=== PATIENT | female | born 1945 | race Hispanic/Latino ===

== ENCOUNTER → 2021-09-20 | Outpatient (CLI) | payer MEDICARE ==
[~2021-09-20] MED LIST: PRAV10TA39 PO
[2021-09-20 08:36] LABS: INR 0.98 (0.85-1.15); PROTHROMBIN TIME 10.7 SEC (9.6-11.6)
== END | disposition home or self-care (01) ==
LOC: RAH 07:33
PROVIDERS: ATTEND Family Medicine
DX: N63.41 Unspecified lump in right breast, subareolar (principal); N60.31 Fibrosclerosis of right breast; N64.1 Fat necrosis of breast; Z79.01 Long term (current) use of anticoagulants
CPT/HCPCS: 19083; 36415; 85610; 85730; A4215 ×3; 76942

== ENCOUNTER 2021-09-29 05:52 | Day surgery (SDC) | payer MEDICARE ==
[2021-09-27 08:14] VITALS: BP 108/53
[2021-09-27 13:42] LABS: BASOPHILS % (AUTO) 0.6 % (0.0-5.0); EOSINOPHILS % (AUTO) 1.9 % (0.0-8.0); HEMATOCRIT 37.2 % (36-48); LYMPHOCYTES % (AUTO) 15.5 % (21.0-51.0); MEAN CORPUSCULAR HEMOGLOBIN 29.2 pg (27.0-33.0); MEAN CORPUSCULAR HGB CONC 32.3 g/dL (32.0-36.0); MEAN CORPUSCULAR VOLUME 90.5 fL (79-99); MONOCYTES % (AUTO) 6.3 % (3.0-13.0); NEUTROPHILS % (AUTO) 75.5 % (40.0-77.0); PLATELET COUNT (AUTO) 212 K/uL (130-400); RED BLOOD CELL COUNT(AUTO) 4.11 MIL/uL (4.00-5.50); RED CELL DISTRIBUTION WIDTH 12.7 % (11.0-15.5); WHITE BLOOD COUNT (AUTO) 4.6 K/uL (4.8-10.8)
[2021-09-27 13:44] LABS: APPEARANCE,URINE Clear (CLEAR); BILIRUBIN,URINE Negative (NEGATIVE); COLOR,URINE Yellow (YELLOW); GLUCOSE, URINE (UA) Negative (NEGATIVE); KETONES,URINE Negative (NEGATIVE); LEUKOCYTE ESTERASE ,URINE Trace (NEGATIVE); NITRATE,URINE Negative (NEGATIVE); OCCULT BLOOD,URINE Small (NEGATIVE); PH,URINE 6.5 (5.0-8.0); PROTEIN,URINE Negative (NEGATIVE)
[2021-09-27 13:48] LABS: BACTERIA,URINE Rare /HPF (None Seen); SQUAMOUS EPITHELIAL CELL,UR Rare /HPF (0-2); WBC,URINE 0-1 /HPF (0-1)
[2021-09-27 13:49] LABS: CREATININE 0.7 mg/dL (0.5-1.5); POTASSIUM 3.9 mmol/L (3.5-5.1)
[2021-09-27 13:51] LABS: INR 0.97 (0.85-1.15); PROTHROMBIN TIME 10.6 SEC (9.6-11.6)
[2021-09-27 13:52] LABS: PARTIAL THROMBOPLASTIN TIME 27.5 SEC (26.3-35.5)
[2021-09-29] VITALS (9 sets, daily range): BP systolic 90–97; BP diastolic 39–58
[~2021-09-29] VITALS: Ht 162.6 cm; Wt 61.8 kg
[2021-09-29] MEDS ORDERED: 0.9%NACL 1000ML 1,000 ML IV ONE (06:23)
[2021-09-29] MEDS ORDERED: IOHEXOL 350 MG/ML 100ML INFUS..BTL IV ONE (07:08)
[2021-09-29] MEDS ORDERED: IOHEXOL-350 50ML VIAL IV ONE (07:08)
[2021-09-29] MEDS ORDERED: MIDAZOLAM HCL 1 MG/ML 2ML VIAL ONE (07:09)
[2021-09-29] MEDS ORDERED: LIDOCAINE HCL 400MG/20ML VIAL ONE (07:09)
[2021-09-29] MEDS ORDERED: FENTANYL CITRATE PF 50 MCG/1 ML 2ML VIAL ONE (07:09)
[2021-09-29] MEDS ORDERED: NITROGLYCERIN 50MG VIAL ONE (07:14)
[2021-09-29] MEDS ORDERED: IOHEXOL-350 75 ML VIAL IV ONE (07:51)
[2021-09-29] MEDS ORDERED: 0.9%NACL 1000ML 1,000 ML IV SCH (08:30)
== END 2021-09-29 12:45 | disposition home or self-care (01) ==
LOC: DAH 05:52
PROVIDERS: ATTEND Internal Medicine
DX: I25.10 Atherosclerotic heart disease of native coronary artery without angina pectoris (principal); I42.8 Other cardiomyopathies; M81.0 Age-related osteoporosis without current pathological fracture; E78.5 Hyperlipidemia, unspecified; F17.200 Nicotine dependence, unspecified, uncomplicated; Z92.21 Personal history of antineoplastic chemotherapy; Z85.72 Personal history of non-Hodgkin lymphomas; Z90.710 Acquired absence of both cervix and uterus; Z82.49 Family history of ischemic heart disease and other diseases of the circulatory system; Z83.3 Family history of diabetes mellitus; Z82.3 Family history of stroke; Z79.01 Long term (current) use of anticoagulants; Z79.899 Other long term (current) drug therapy; Z98.890 Other specified postprocedural states
CPT/HCPCS: 36415; 71045; 80048; 81001; 85025; 85610; 85730; 93005; 93458; 93567; A4215; A4216; A4221; A4222; A4223 ×3; A4606; A4663; C1760; C1894 ×2; J1644; J2250; J3010; J3490; J7030; Q9965; Q9967 ×3; 96365; 96366; 99156; 99157

== ENCOUNTER 2022-03-03 07:51 | Day surgery (SDC) | payer MEDICARE ==
[2022-03-01 11:58] LABS: BASOPHILS % (AUTO) 0.8 % (0.0-5.0); EOSINOPHILS % (AUTO) 3.9 % (0.0-8.0); HEMATOCRIT 35.9 % (36-48); MEAN CORPUSCULAR HEMOGLOBIN 28.9 pg (27.0-33.0); MEAN CORPUSCULAR HGB CONC 32.6 g/dL (32.0-36.0); MEAN CORPUSCULAR VOLUME 88.6 fL (79-99); MONOCYTES % (AUTO) 7.8 % (3.0-13.0); NEUTROPHILS % (AUTO) 77.1 % (40.0-77.0); PLATELET COUNT (AUTO) 226 K/uL (130-400); RED BLOOD CELL COUNT(AUTO) 4.05 MIL/uL (4.00-5.50); RED CELL DISTRIBUTION WIDTH 12.9 % (11.0-15.5); WHITE BLOOD COUNT (AUTO) 4.9 K/uL (4.8-10.8)
[2022-03-01 12:04] LABS: CREATININE 0.8 mg/dL (0.5-1.5); POTASSIUM 3.7 mmol/L (3.5-5.1)
[2022-03-01 12:08] LABS: INR 0.95 (0.85-1.15); PROTHROMBIN TIME 10.4 SEC (9.6-11.6)
[2022-03-01 12:09] LABS: PARTIAL THROMBOPLASTIN TIME 26.6 SEC (26.3-35.5)
[2022-03-02 10:39] VITALS: BP 94/53
[2022-03-03] VITALS (9 sets, daily range): BP systolic 81–103; BP diastolic 45–57
[~2022-03-03] VITALS: Ht 162.6 cm; Wt 62.4 kg
[~2022-03-03 07:51] MED LIST changes: +LORA-997 PO
[2022-03-03] MEDS ORDERED: 0.9%NACL 1000ML 1,000 ML IV SCH (08:00)
[2022-03-03] MEDS ORDERED: CEFAZOLIN SODIUM 1 GM VIAL IVP ONE (08:00)
[2022-03-03] MEDS ORDERED: BUPIVACAINE/PF 0.25% 30ML VIAL IJ ONE (10:21)
[2022-03-03] MEDS ORDERED: LIDOCAINE HCL 1% 20 ML VIAL ONE (10:21)
[2022-03-03] MEDS ORDERED: MIDAZOLAM HCL 1 MG/ML 2ML VIAL ONE (10:22)
[2022-03-03] MEDS ORDERED: MEPERIDINE-PF 25 MG/ML SYG ONE (10:22)
[2022-03-03] MEDS ORDERED: ACETAMINOPHEN WITH CODEINE 1 TAB TAB PO PRN (11:30)
[2022-03-03] MEDS ORDERED: TRAM50TA4 PO (11:34)
== END 2022-03-03 15:30 | disposition home or self-care (01) ==
LOC: DAH 07:51
PROVIDERS: ATTEND Internal Medicine Cardiovascular Disease
DX: I42.8 Other cardiomyopathies (principal); I11.0 Hypertensive heart disease with heart failure; I50.43 Acute on chronic combined systolic (congestive) and diastolic (congestive) heart failure; F17.210 Nicotine dependence, cigarettes, uncomplicated; I25.10 Atherosclerotic heart disease of native coronary artery without angina pectoris; Z82.49 Family history of ischemic heart disease and other diseases of the circulatory system; Z83.3 Family history of diabetes mellitus; Z82.3 Family history of stroke; Z79.899 Other long term (current) drug therapy; Z79.01 Long term (current) use of anticoagulants
CPT/HCPCS: 80048; 85025; 85610; 85730; 36415; 33249; 71045; 93005; A6260; C1722; C1895; J0690 ×2; J7030; J3490; J2250; J2175; A4215; A4222; A4221; A4663; A4216; A4606; A4223 ×3; 99156; 99157

== ENCOUNTER 2022-07-11 12:35 | Inpatient (IN) | payer MEDICARE ==
[~2022-07-11] VITALS: Ht 162.6 cm; Wt 60.8 kg
[~2022-07-11 12:35] MED LIST changes: +TRAM50TA4 PO
[2022-07-11 13:07] LABS: HEMATOCRIT 37.2 % (36-48); MEAN CORPUSCULAR HEMOGLOBIN 28.1 pg (27.0-33.0); MEAN CORPUSCULAR VOLUME 87.7 fL (79-99); RED BLOOD CELL COUNT(AUTO) 4.24 MIL/uL (4.00-5.50); RED CELL DISTRIBUTION WIDTH 16.5 % (11.0-15.5); WHITE BLOOD COUNT (AUTO) 9.8 K/uL (4.8-10.8)
[2022-07-11 13:17] LABS: CARBON DIOXIDE 27 mmol/L (21-32); CHLORIDE 100 mmol/L (101-111); CREATININE 0.9 mg/dL (0.5-1.5); GLOMERULAR FILTR. RATE CALC 65 mL/min (>60); GLUCOSE,RANDOM 252 mg/dL (70-105); POTASSIUM 3.6 mmol/L (3.5-5.1); SODIUM SERUM 137 mmol/L (136-145); UREA NITROGEN, BLOOD 29 mg/dL (7-18)
[2022-07-11 13:21] LABS: ALANINE AMINOTRANSFERASE 17 U/L (12-78); ALBUMIN 2.7 g/dL (3.5-5.0); ASPARTATE AMINOTRANSFERASE 16 U/L (10-37)
[2022-07-11 13:22] LABS: LIPASE < 50 U/L (114-286)
[2022-07-11 13:37] LABS: APPEARANCE,URINE CLEAR (CLEAR); BILIRUBIN,URINE NEGATIVE (NEGATIVE); COLOR,URINE YELLOW (YELLOW); GLUCOSE, URINE (UA) 30 mg/dL (NEGATIVE); KETONES,URINE 5 mg/dL (NEGATIVE); LEUKOCYTE ESTERASE ,URINE 500 Leu/uL (NEGATIVE); NITRATE,URINE NEGATIVE (NEGATIVE); OCCULT BLOOD,URINE NEGATIVE (NEGATIVE); PH,URINE 6.5 (5.0-8.0); PROTEIN,URINE 70 mg/dL (NEGATIVE)
[2022-07-11] MEDS ORDERED: CEFTRIAXONE 1G VIAL IVP STA (13:55)
[2022-07-11] MEDS ORDERED: AZITHROMYCIN 500MG+NS 250ML IVPB STA (14:10)
[2022-07-11 14:11] LABS: BACTERIA,URINE FEW /HPF (None Seen); MUCUS,URINE RARE LPF (None Seen); SQUAMOUS EPITHELIAL CELL,UR FEW /HPF (0-2)
[2022-07-11] MEDS ORDERED: KETOROLAC 30MG VIAL (30MG/ML) ONE (14:56)
[2022-07-11] MEDS ORDERED: KETOROLAC 30MG VIAL (30MG/ML) IVP ONE (15:00)
[2022-07-11] MEDS ORDERED: FUROSEMIDE 40MG VIAL IV STA (15:06)
[2022-07-11] MEDS ORDERED: ONDANSETRON 4MG INJ IVP PRN (15:30)
[2022-07-11] MEDS ORDERED: HYDRALAZINE 20MG/ML VIAL IV PRN (15:30)
[2022-07-11] MEDS ORDERED: LACTULOSE 20 GM/30 ML UDCUP PO PRN (15:30)
[2022-07-11] MEDS ORDERED: LABETALOL 20MG SYG IV PRN (15:30)
[2022-07-11] MEDS: FUROSEMIDE 20MG VIAL IV SCH (15:31)
[2022-07-11] MEDS ORDERED: SODIUM CHLORIDE 3% FOR INHALATION 4 ML/AMP VIAL.NEB IH ONE ×2 (15:37→18:17)
[2022-07-11 16:29] VITALS: BP 105/55
[2022-07-11] MEDS: INSULIN HUMULIN R 100 UNIT/ML 3ML SQ SCH ×2 (16:30→21:00)
[2022-07-11] MEDS: IPRATROPIUM/ALBUTEROL SULFATE 3 ML SOLUTION IH SCH ×2 (18:42→22:40)
[2022-07-11] MEDS ORDERED: FURO20TA4 PO (20:36)
[2022-07-11] MEDS ORDERED: IVAB5TAB PO (20:36)
[2022-07-11] MEDS: FAMOTIDINE 20MG TAB PO SCH (21:32)
[2022-07-11] MEDS: CEFEPIME HCL 1 GM VIAL IVP SCH (21:32)
[2022-07-12] VITALS: BP 104/68
[2022-07-12] MEDS ORDERED: MORPHINE 2 MG SYG IVP ONE (01:00)
[2022-07-12] MEDS: LIDOCAINE 5% TOPICAL PATCH TP SCH ×2 (01:35→08:51)
[2022-07-12 02:23] LABS: BASOPHILS % (AUTO) 0.2 % (0.0-5.0); EOSINOPHILS % (AUTO) 0.4 % (0.0-8.0); HEMATOCRIT 34.6 % (36-48); LYMPHOCYTES % (AUTO) 7.9 % (21.0-51.0); MEAN CORPUSCULAR HEMOGLOBIN 27.8 pg (27.0-33.0); MEAN CORPUSCULAR HGB CONC 32.4 g/dL (32.0-36.0); MEAN CORPUSCULAR VOLUME 85.9 fL (79-99); MONOCYTES % (AUTO) 8.2 % (3.0-13.0); NEUTROPHILS % (AUTO) 83.1 % (40.0-77.0); PLATELET COUNT (AUTO) 152 K/uL (130-400); RED BLOOD CELL COUNT(AUTO) 4.03 MIL/uL (4.00-5.50); RED CELL DISTRIBUTION WIDTH 16.3 % (11.0-15.5); WHITE BLOOD COUNT (AUTO) 8.5 K/uL (4.8-10.8)
[2022-07-12] MEDS: IPRATROPIUM/ALBUTEROL SULFATE 3 ML SOLUTION IH SCH ×5 (02:28→20:05)
[2022-07-12] MEDS ORDERED: LORATADINE 10 MG TABLET PO PRN (02:30)
[2022-07-12] MEDS ORDERED: POTASSIUM CHLORIDE 10MEQ/100ML 100 ML IV PRN (02:30)
[2022-07-12] MEDS ORDERED: POTASSIUM CHLORIDE 20MEQ/100ML 100 ML IV PRN (02:30)
[2022-07-12] MEDS ORDERED: KCL 20 MEQ ERTAB PO PRN (02:30)
[2022-07-12] MEDS ORDERED: LIDOCAINE HCL-MPF 1% 2ML VIAL IV PRN ×2 (02:30)
[2022-07-12] MEDS ORDERED: MAGNESIUM 2GM PREMIX 50ML 50 ML IV PRN ×2 (02:30)
[2022-07-12] MEDS ORDERED: POTASSIUM CHLORIDE 10% ELIXIR 20 MEQ/15 ML UDCUP PO PRN ×2 (02:30)
[2022-07-12 02:42] LABS: CREATININE 0.9 mg/dL (0.5-1.5); MAGNESIUM 1.5 mg/dL (1.80-2.40); PHOSPHORUS 3.3 mg/dL (2.5-4.9); POTASSIUM 3.4 mmol/L (3.5-5.1)
[2022-07-12 02:46] LABS: HEMOGLOBIN A1C 7.5 % (4.0-6.0)
[2022-07-12] MEDS: FUROSEMIDE 20MG VIAL IV SCH ×2 (02:55→15:20)
[2022-07-12] MEDS: KCL 20 MEQ ERTAB PO PRN ×2 (02:56→05:12)
[2022-07-12 03:11] LABS: B-TYPE NATRIURETIC PEPTIDE 1470 pg/mL (0-100)
[2022-07-12 04:00] VITALS: BP 158/87
[2022-07-12] MEDS: INSULIN HUMULIN R 100 UNIT/ML 3ML SQ SCH ×5 (07:23→20:47)
[2022-07-12 07:30] VITALS: BP 96/60
[2022-07-12] MEDS: IVABRADINE HCL 5 MG TABLET PO SCH ×5 (08:00→16:24)
[2022-07-12] MEDS: FAMOTIDINE 20MG TAB PO SCH ×2 (08:50→20:48)
[2022-07-12] MEDS: ENOXAPARIN SODIUM 30 MG/0.3 ML SQ SCH (08:51)
[2022-07-12] MEDS: CEFEPIME HCL 1 GM VIAL IVP SCH ×2 (08:51→20:49)
[2022-07-12 11:00] VITALS: BP 96/55
[2022-07-12] MEDS: AZITHROMYCIN 500MG+NS 250ML IVPB SCH (13:32)
[2022-07-12 16:00] VITALS: BP 100/68
[2022-07-12 19:00] VITALS: BP 118/67
[2022-07-12] MEDS: ATORVASTATIN 10 MG TABLET PO SCH (20:48)
[2022-07-12] MEDS: TRAMADOL HCL 50 MG TABLET PO PRN (20:50)
[2022-07-13] VITALS (7 sets, daily range): BP systolic 74–121; BP diastolic 38–67
[2022-07-13] MEDS: IPRATROPIUM/ALBUTEROL SULFATE 3 ML SOLUTION IH SCH ×7 (00:25→22:54)
[2022-07-13] MEDS: FUROSEMIDE 20MG VIAL IV SCH ×2 (04:20→18:27)
[2022-07-13 05:19] LABS: BASOPHILS % (AUTO) 0.2 % (0.0-5.0); EOSINOPHILS % (AUTO) 0.3 % (0.0-8.0); HEMATOCRIT 37.2 % (36-48); LYMPHOCYTES % (AUTO) 8.9 % (21.0-51.0); MEAN CORPUSCULAR HEMOGLOBIN 28.2 pg (27.0-33.0); MEAN CORPUSCULAR HGB CONC 33.3 g/dL (32.0-36.0); MEAN CORPUSCULAR VOLUME 84.5 fL (79-99); MONOCYTES % (AUTO) 8.6 % (3.0-13.0); NEUTROPHILS % (AUTO) 81.7 % (40.0-77.0); PLATELET COUNT (AUTO) 199 K/uL (130-400); RED CELL DISTRIBUTION WIDTH 16.3 % (11.0-15.5); WHITE BLOOD COUNT (AUTO) 9.2 K/uL (4.8-10.8)
[2022-07-13 05:22] LABS: MAGNESIUM 1.9 mg/dL (1.80-2.40); POTASSIUM 3.8 mmol/L (3.5-5.1)
[2022-07-13] MEDS: TRAMADOL HCL 50 MG TABLET PO PRN ×2 (05:38→20:14)
[2022-07-13 05:58] LABS: B-TYPE NATRIURETIC PEPTIDE 1560 pg/mL (0-100)
[2022-07-13] MEDS: INSULIN HUMULIN R 100 UNIT/ML 3ML SQ SCH ×4 (06:58→20:19)
[2022-07-13] MEDS: CEFEPIME HCL 1 GM VIAL IVP SCH ×2 (09:53→20:12)
[2022-07-13] MEDS: FAMOTIDINE 20MG TAB PO SCH ×2 (09:53→20:12)
[2022-07-13] MEDS: ENOXAPARIN SODIUM 30 MG/0.3 ML SQ SCH (09:53)
[2022-07-13] MEDS: LIDOCAINE 5% TOPICAL PATCH TP SCH (09:55)
[2022-07-13] MEDS: MORPHINE 2 MG SYG IVP PRN (10:35)
[2022-07-13] MEDS ORDERED: IOHEXOL 350 MG/ML 100ML INFUS..BTL IV ONE (12:13)
[2022-07-13 17:05] LABS: BASOPHILS % (AUTO) 0.3 % (0.0-5.0); EOSINOPHILS % (AUTO) 0.3 % (0.0-8.0); HEMATOCRIT 36.9 % (36-48); LYMPHOCYTES % (AUTO) 7.4 % (21.0-51.0); MEAN CORPUSCULAR HEMOGLOBIN 28.2 pg (27.0-33.0); MEAN CORPUSCULAR HGB CONC 33.1 g/dL (32.0-36.0); MEAN CORPUSCULAR VOLUME 85.2 fL (79-99); MONOCYTES % (AUTO) 8.8 % (3.0-13.0); NEUTROPHILS % (AUTO) 82.9 % (40.0-77.0); PLATELET COUNT (AUTO) 192 K/uL (130-400); RED BLOOD CELL COUNT(AUTO) 4.33 MIL/uL (4.00-5.50); RED CELL DISTRIBUTION WIDTH 16.3 % (11.0-15.5); WHITE BLOOD COUNT (AUTO) 9.6 K/uL (4.8-10.8)
[2022-07-13] MEDS: IVABRADINE HCL 5 MG TABLET PO SCH (18:26)
[2022-07-13] MEDS: AZITHROMYCIN 500MG+NS 250ML IVPB SCH (18:26)
[2022-07-13] MEDS: GABAPENTIN 100 MG CAPSULE PO SCH ×2 (18:26→20:17)
[2022-07-13] MEDS: ACETYLCYSTEINE 20% 200MG/ML 4ML VIAL IH SCH (19:07)
[2022-07-13] MEDS: ATORVASTATIN 10 MG TABLET PO SCH (20:13)
[2022-07-13] MEDS: ENOXAPARIN SODIUM 60 MG/0.6 ML SQ SCH (20:16)
[2022-07-14] VITALS: BP 101/52
[2022-07-14] MEDS: IPRATROPIUM/ALBUTEROL SULFATE 3 ML SOLUTION IH SCH ×6 (02:23→22:55)
[2022-07-14 04:11] VITALS: BP 104/63
[2022-07-14] MEDS: FUROSEMIDE 20MG VIAL IV SCH (04:40)
[2022-07-14 05:04] LABS: BASOPHILS % (AUTO) 0.6 % (0.0-5.0); EOSINOPHILS % (AUTO) 0.8 % (0.0-8.0); HEMATOCRIT 31.9 % (36-48); LYMPHOCYTES % (AUTO) 9.5 % (21.0-51.0); MEAN CORPUSCULAR HEMOGLOBIN 27.9 pg (27.0-33.0); MEAN CORPUSCULAR HGB CONC 33.2 g/dL (32.0-36.0); MEAN CORPUSCULAR VOLUME 83.9 fL (79-99); MONOCYTES % (AUTO) 10.5 % (3.0-13.0); NEUTROPHILS % (AUTO) 78.2 % (40.0-77.0); PLATELET COUNT (AUTO) 185 K/uL (130-400); RED CELL DISTRIBUTION WIDTH 16.1 % (11.0-15.5); WHITE BLOOD COUNT (AUTO) 7.1 K/uL (4.8-10.8)
[2022-07-14 05:18] LABS: CREATININE 1.1 mg/dL (0.5-1.5); POTASSIUM 3.3 mmol/L (3.5-5.1)
[2022-07-14 05:30] LABS: INR 1.13 (0.85-1.15); PROTHROMBIN TIME 12.2 SEC (9.6-11.6)
[2022-07-14 05:31] LABS: PARTIAL THROMBOPLASTIN TIME 35.3 SEC (26.3-35.5)
[2022-07-14] MEDS: INSULIN HUMULIN R 100 UNIT/ML 3ML SQ SCH ×4 (06:21→21:49)
[2022-07-14] MEDS: ACETYLCYSTEINE 20% 200MG/ML 4ML VIAL IH SCH ×2 (07:00→19:04)
[2022-07-14 07:46] VITALS: BP 106/50
[2022-07-14] MEDS: LIDOCAINE 5% TOPICAL PATCH TP SCH (09:05)
[2022-07-14] MEDS: GABAPENTIN 100 MG CAPSULE PO SCH ×3 (09:05→21:31)
[2022-07-14] MEDS: CEFEPIME HCL 1 GM VIAL IVP SCH ×2 (09:05→21:31)
[2022-07-14] MEDS: IVABRADINE HCL 5 MG TABLET PO SCH ×2 (09:05→17:28)
[2022-07-14] MEDS: FAMOTIDINE 20MG TAB PO SCH ×2 (09:06→21:31)
[2022-07-14] MEDS: ENOXAPARIN SODIUM 60 MG/0.6 ML SQ SCH (09:09)
[2022-07-14] MEDS: TRAMADOL HCL 50 MG TABLET PO PRN ×2 (09:11→18:37)
[2022-07-14 11:28] VITALS: BP 86/55
[2022-07-14] MEDS: AZITHROMYCIN 500MG+NS 250ML IVPB SCH (13:37)
[2022-07-14 15:42] VITALS: BP 125/66
[2022-07-14 19:07] VITALS: BP 96/54
[2022-07-14] MEDS: ATORVASTATIN 10 MG TABLET PO SCH (21:31)
[2022-07-14] MEDS: APIXABAN 5 MG TABLET PO SCH (21:31)
[2022-07-15] VITALS: BP 99/66
[2022-07-15] MEDS: IPRATROPIUM/ALBUTEROL SULFATE 3 ML SOLUTION IH SCH ×4 (02:16→13:44)
[2022-07-15 04:00] VITALS: BP 85/53
[2022-07-15 05:13] LABS: BASOPHILS % (AUTO) 0.3 % (0.0-5.0); EOSINOPHILS % (AUTO) 0.7 % (0.0-8.0); HEMATOCRIT 33.2 % (36-48); LYMPHOCYTES % (AUTO) 11.1 % (21.0-51.0); MEAN CORPUSCULAR HEMOGLOBIN 28.3 pg (27.0-33.0); MEAN CORPUSCULAR HGB CONC 32.5 g/dL (32.0-36.0); MEAN CORPUSCULAR VOLUME 87.1 fL (79-99); MONOCYTES % (AUTO) 10.8 % (3.0-13.0); NEUTROPHILS % (AUTO) 76.4 % (40.0-77.0); PLATELET COUNT (AUTO) 197 K/uL (130-400); RED BLOOD CELL COUNT(AUTO) 3.81 MIL/uL (4.00-5.50); RED CELL DISTRIBUTION WIDTH 16.1 % (11.0-15.5)
[2022-07-15 05:18] LABS: CREATININE 1.1 mg/dL (0.5-1.5); POTASSIUM 3.8 mmol/L (3.5-5.1)
[2022-07-15] MEDS: INSULIN HUMULIN R 100 UNIT/ML 3ML SQ SCH ×4 (05:52→21:24)
[2022-07-15] MEDS: ACETYLCYSTEINE 20% 200MG/ML 4ML VIAL IH SCH (06:26)
[2022-07-15 07:30] VITALS: BP 96/64
[2022-07-15] MEDS: IVABRADINE HCL 5 MG TABLET PO SCH ×2 (08:00→18:26)
[2022-07-15] MEDS: CEFEPIME HCL 1 GM VIAL IVP SCH ×2 (09:15→21:21)
[2022-07-15] MEDS: APIXABAN 5 MG TABLET PO SCH ×2 (09:17→21:22)
[2022-07-15] MEDS: FAMOTIDINE 20MG TAB PO SCH ×2 (09:17→21:22)
[2022-07-15] MEDS: GABAPENTIN 100 MG CAPSULE PO SCH ×3 (09:17→21:22)
[2022-07-15] MEDS: LIDOCAINE 5% TOPICAL PATCH TP SCH (09:17)
[2022-07-15 11:38] VITALS: BP 111/63
[2022-07-15] MEDS: TRAMADOL HCL 50 MG TABLET PO PRN (12:25)
[2022-07-15] MEDS ORDERED: 0.9% NACL 250ML 250 ML ONE (16:03)
[2022-07-15] MEDS: AZITHROMYCIN 500MG+NS 250ML IVPB SCH (16:12)
[2022-07-15 16:17] VITALS: BP 89/58
[2022-07-15] MEDS ORDERED: IPRATROPIUM/ALBUTEROL SULFATE 3 ML SOLUTION IH PRN (18:30)
[2022-07-15 20:00] VITALS: BP 95/63
[2022-07-15] MEDS: ATORVASTATIN 10 MG TABLET PO SCH (21:21)
[2022-07-15] MEDS: ACETAMINOPHEN 325 MG TAB PO PRN (21:48)
[2022-07-16] VITALS: BP 111/59
[2022-07-16 04:00] VITALS: BP 96/54
[2022-07-16 05:40] LABS: POTASSIUM 3.5 mmol/L (3.5-5.1)
[2022-07-16] MEDS: INSULIN HUMULIN R 100 UNIT/ML 3ML SQ SCH ×4 (06:01→23:10)
[2022-07-16 06:53] LABS: BASOPHILS % (AUTO) 0.4 % (0.0-5.0); EOSINOPHILS % (AUTO) 0.9 % (0.0-8.0); HEMATOCRIT 32.5 % (36-48); LYMPHOCYTES % (AUTO) 8.1 % (21.0-51.0); MEAN CORPUSCULAR HEMOGLOBIN 28.1 pg (27.0-33.0); MEAN CORPUSCULAR HGB CONC 32.9 g/dL (32.0-36.0); MEAN CORPUSCULAR VOLUME 85.3 fL (79-99); MONOCYTES % (AUTO) 8.7 % (3.0-13.0); NEUTROPHILS % (AUTO) 81.1 % (40.0-77.0); PLATELET COUNT (AUTO) 235 K/uL (130-400); RED BLOOD CELL COUNT(AUTO) 3.81 MIL/uL (4.00-5.50); RED CELL DISTRIBUTION WIDTH 16.2 % (11.0-15.5); WHITE BLOOD COUNT (AUTO) 7.7 K/uL (4.8-10.8)
[2022-07-16 07:15] VITALS: BP 97/54
[2022-07-16] MEDS: IVABRADINE HCL 5 MG TABLET PO SCH ×2 (08:50→16:09)
[2022-07-16] MEDS: GABAPENTIN 100 MG CAPSULE PO SCH ×3 (08:50→20:02)
[2022-07-16] MEDS: FAMOTIDINE 20MG TAB PO SCH ×2 (08:51→19:56)
[2022-07-16] MEDS: LIDOCAINE 5% TOPICAL PATCH TP SCH (08:51)
[2022-07-16] MEDS: CEFEPIME HCL 1 GM VIAL IVP SCH ×2 (08:51→19:57)
[2022-07-16] MEDS: APIXABAN 5 MG TABLET PO SCH ×2 (08:51→20:01)
[2022-07-16] MEDS: TRAMADOL HCL 50 MG TABLET PO PRN (08:55)
[2022-07-16 11:33] VITALS: BP 90/69
[2022-07-16] MEDS ORDERED: 0.9% NACL 250ML 250 ML ONE (12:04)
[2022-07-16] MEDS: AZITHROMYCIN 500MG+NS 250ML IVPB SCH (12:07)
[2022-07-16] MEDS: MORPHINE 2 MG SYG IVP PRN (12:58)
[2022-07-16 15:40] VITALS: BP 86/58
[2022-07-16] MEDS: ATORVASTATIN 10 MG TABLET PO SCH (20:01)
[2022-07-16 20:05] VITALS: BP 93/67
[2022-07-16] MEDS: ACETAMINOPHEN 325 MG TAB PO PRN (23:25)
[2022-07-17 00:01] VITALS: BP 91/50
[2022-07-17 04:43] VITALS: BP 105/64
[2022-07-17 04:52] LABS: POTASSIUM 3.5 mmol/L (3.5-5.1)
[2022-07-17] MEDS: KCL 20 MEQ ERTAB PO PRN ×3 (05:06→17:40)
[2022-07-17] MEDS: BENZONATATE 100 MG CAPSULE PO PRN ×3 (05:15→22:20)
[2022-07-17] MEDS: INSULIN HUMULIN R 100 UNIT/ML 3ML SQ SCH ×4 (06:15→20:03)
[2022-07-17 08:00] VITALS: BP 103/65
[2022-07-17] MEDS: IVABRADINE HCL 5 MG TABLET PO SCH ×2 (09:01→17:40)
[2022-07-17] MEDS: GABAPENTIN 100 MG CAPSULE PO SCH ×3 (09:01→21:05)
[2022-07-17] MEDS: FAMOTIDINE 20MG TAB PO SCH ×2 (09:01→21:04)
[2022-07-17] MEDS: LIDOCAINE 5% TOPICAL PATCH TP SCH (09:02)
[2022-07-17] MEDS: CEFEPIME HCL 1 GM VIAL IVP SCH ×2 (09:02→21:03)
[2022-07-17] MEDS: APIXABAN 5 MG TABLET PO SCH ×2 (09:07→21:04)
[2022-07-17 12:00] VITALS: BP 130/72
[2022-07-17] MEDS ORDERED: DOXY100C5 PO (12:53)
[2022-07-17] MEDS ORDERED: FAMO20TA8 PO (12:53)
[2022-07-17] MEDS ORDERED: GABA100C PO (12:53)
[2022-07-17] MEDS ORDERED: BENZ-70 PO (12:53)
[2022-07-17] MEDS ORDERED: IPRA3AMP24 IH (12:53)
[2022-07-17] MEDS ORDERED: APIX5TAB PO (12:53)
[2022-07-17] MEDS: AZITHROMYCIN 500MG+NS 250ML IVPB SCH (15:07)
[2022-07-17 16:00] VITALS: BP 103/65
[2022-07-17] MEDS: MORPHINE 2 MG SYG IVP PRN (17:49)
[2022-07-17 20:37] VITALS: BP 94/62
[2022-07-17] MEDS: ATORVASTATIN 10 MG TABLET PO SCH (21:04)
[2022-07-18] VITALS (7 sets, daily range): BP systolic 96–108; BP diastolic 49–73
[2022-07-18 05:23] LABS: CREATININE 0.9 mg/dL (0.5-1.5); POTASSIUM 4.1 mmol/L (3.5-5.1)
[2022-07-18] MEDS: INSULIN HUMULIN R 100 UNIT/ML 3ML SQ SCH ×4 (05:37→21:00)
[2022-07-18] MEDS: FAMOTIDINE 20MG TAB PO SCH ×2 (08:42→21:29)
[2022-07-18] MEDS: IVABRADINE HCL 5 MG TABLET PO SCH ×2 (08:42→17:15)
[2022-07-18] MEDS: APIXABAN 5 MG TABLET PO SCH ×2 (08:43→21:28)
[2022-07-18] MEDS: GABAPENTIN 100 MG CAPSULE PO SCH ×3 (08:43→21:29)
[2022-07-18] MEDS: CEFEPIME HCL 1 GM VIAL IVP SCH ×2 (08:49→21:29)
[2022-07-18] MEDS: LIDOCAINE 5% TOPICAL PATCH TP SCH (08:50)
[2022-07-18] MEDS: MORPHINE 2 MG SYG IVP PRN (08:51)
[2022-07-18] MEDS: AZITHROMYCIN 500MG+NS 250ML IVPB SCH (12:44)
[2022-07-18 14:57] LABS: ABG BASE EXCESS -2.4 mmol/L (-2.0-3.0); ABG HCO3 21.9 mmol/L (21.0-28.0); ABG OXYGEN SATURATION 98.2 % (95.0-99.0); ABG PCO2 37 mmHg (32-45)
[2022-07-18] MEDS: ATORVASTATIN 10 MG TABLET PO SCH (21:29)
[2022-07-18] MEDS: BENZONATATE 100 MG CAPSULE PO PRN (21:37)
[2022-07-19 03:56] VITALS: BP 94/66
[2022-07-19] MEDS: INSULIN HUMULIN R 100 UNIT/ML 3ML SQ SCH ×4 (07:30→21:00)
[2022-07-19] MEDS: IVABRADINE HCL 5 MG TABLET PO SCH ×2 (08:31→16:31)
[2022-07-19] MEDS: GABAPENTIN 100 MG CAPSULE PO SCH ×3 (08:31→21:31)
[2022-07-19] MEDS: FAMOTIDINE 20MG TAB PO SCH ×2 (08:31→21:31)
[2022-07-19] MEDS: LIDOCAINE 5% TOPICAL PATCH TP SCH (08:31)
[2022-07-19] MEDS: FUROSEMIDE 20 MG TABLET PO SCH (08:31)
[2022-07-19] MEDS: APIXABAN 5 MG TABLET PO SCH ×2 (08:32→21:32)
[2022-07-19] MEDS: ACETAMINOPHEN 325 MG TAB PO PRN ×2 (08:33→21:33)
[2022-07-19] MEDS: CEFEPIME HCL 1 GM VIAL IVP SCH ×2 (08:36→21:32)
[2022-07-19 12:00] VITALS: BP 108/67
[2022-07-19] MEDS: AZITHROMYCIN 500MG+NS 250ML IVPB SCH (13:11)
[2022-07-19 15:55] LABS: BASOPHILS % (AUTO) 0.3 % (0.0-5.0); EOSINOPHILS % (AUTO) 0.9 % (0.0-8.0); HEMATOCRIT 38.8 % (36-48); LYMPHOCYTES % (AUTO) 5.4 % (21.0-51.0); MEAN CORPUSCULAR HEMOGLOBIN 27.7 pg (27.0-33.0); MEAN CORPUSCULAR HGB CONC 31.4 g/dL (32.0-36.0); MONOCYTES % (AUTO) 6.7 % (3.0-13.0); NEUTROPHILS % (AUTO) 85.1 % (40.0-77.0); PLATELET COUNT (AUTO) 345 K/uL (130-400); RED BLOOD CELL COUNT(AUTO) 4.41 MIL/uL (4.00-5.50); RED CELL DISTRIBUTION WIDTH 16.7 % (11.0-15.5); WHITE BLOOD COUNT (AUTO) 10.2 K/uL (4.8-10.8)
[2022-07-19 16:00] VITALS: BP 91/60
[2022-07-19 20:31] VITALS: BP 102/81
[2022-07-19] MEDS: ATORVASTATIN 10 MG TABLET PO SCH (21:32)
[2022-07-19] MEDS: BENZONATATE 100 MG CAPSULE PO PRN (21:33)
[2022-07-19 23:37] VITALS: BP 119/62
[2022-07-20 03:42] VITALS: BP 107/61
[2022-07-20] MEDS: INSULIN HUMULIN R 100 UNIT/ML 3ML SQ SCH (06:46)
[2022-07-20 08:00] VITALS: BP 100/58
[2022-07-20] MEDS: FUROSEMIDE 20 MG TABLET PO SCH (08:03)
[2022-07-20] MEDS: CEFEPIME HCL 1 GM VIAL IVP SCH (08:03)
[2022-07-20] MEDS: APIXABAN 5 MG TABLET PO SCH (08:04)
[2022-07-20] MEDS: LIDOCAINE 5% TOPICAL PATCH TP SCH (08:04)
[2022-07-20] MEDS: FAMOTIDINE 20MG TAB PO SCH (08:05)
[2022-07-20] MEDS: GABAPENTIN 100 MG CAPSULE PO SCH (08:07)
[2022-07-20] MEDS: BENZONATATE 100 MG CAPSULE PO PRN (08:09)
[2022-07-20] MEDS: ACETAMINOPHEN 325 MG TAB PO PRN (08:16)
[2022-07-20] MEDS: IVABRADINE HCL 5 MG TABLET PO SCH (08:56)
[2022-07-20 12:00] VITALS: BP 100/64
[2022-07-24] MEDS ORDERED: APIXABAN 5 MG TABLET PO SCH (21:00)
== END 2022-07-20 13:50 | disposition home or self-care (01) | DRG 175 ==
LOC: EDH 12:35 → OBSVTOIN 15:02 → EDHIP 15:02 → 4AH 17:15 → 3AH 07-16 19:37
PROVIDERS: ADMIT Internal Medicine Critical Care Medicine; ATTEND Internal Medicine Critical Care Medicine
DX: I26.99 Other pulmonary embolism without acute cor pulmonale (principal); I50.41 Acute combined systolic (congestive) and diastolic (congestive) heart failure; J18.9 Pneumonia, unspecified organism; J96.01 Acute respiratory failure with hypoxia; J44.0 Chronic obstructive pulmonary disease with (acute) lower respiratory infection; C85.90 Non-Hodgkin lymphoma, unspecified, unspecified site; N30.00 Acute cystitis without hematuria; Z20.822 Contact with and (suspected) exposure to COVID-19; M19.90 Unspecified osteoarthritis, unspecified site; K59.00 Constipation, unspecified; I11.0 Hypertensive heart disease with heart failure; I25.10 Atherosclerotic heart disease of native coronary artery without angina pectoris; Z95.810 Presence of automatic (implantable) cardiac defibrillator; Z79.899 Other long term (current) drug therapy
CPT/HCPCS: 36415; 36600; 71045; 71270; 74176; 74178; 80048; 80053; 81001; 82803; 82948; 83036; 83605; 83690; 83735; 83880; 84100; 84145; 84484; 85025; 85027; 85610; 85730; 86738; 87071; 87088; 87205; 87449; 87635; 87804; 93005; 93306; 93356; 93970; 94640; 94664; 94667; 94668; 94760; 97039; G0378; J0456; J0692; J0696; J1650; J1815; J1885; J1940; J3475; J7050; J7608; Q9967

== ENCOUNTER 2022-07-24 11:49 | Observation (INO) | payer MEDICARE ==
[~2022-07-24] VITALS: Ht 162.6 cm; Wt 64.8 kg
[~2022-07-24 11:49] MED LIST changes: +APIX5TAB PO; +BENZ-70 PO; +DOXY100C5 PO; +FAMO20TA8 PO; +FURO20TA4 PO; +GABA100C PO; +IPRA3AMP24 IH; +IVAB5TAB PO; -TRAM50TA4 PO
[2022-07-24 12:19] LABS: BASOPHILS % (AUTO) 0.9 % (0.0-5.0); EOSINOPHILS % (AUTO) 0.9 % (0.0-8.0); HEMATOCRIT 40.5 % (36-48); LYMPHOCYTES % (AUTO) 6.4 % (21.0-51.0); MEAN CORPUSCULAR HEMOGLOBIN 27.9 pg (27.0-33.0); MEAN CORPUSCULAR HGB CONC 31.4 g/dL (32.0-36.0); MEAN CORPUSCULAR VOLUME 88.8 fL (79-99); MONOCYTES % (AUTO) 5.7 % (3.0-13.0); NEUTROPHILS % (AUTO) 85.7 % (40.0-77.0); PLATELET COUNT (AUTO) 317 K/uL (130-400); RED BLOOD CELL COUNT(AUTO) 4.56 MIL/uL (4.00-5.50); RED CELL DISTRIBUTION WIDTH 16.7 % (11.0-15.5); WHITE BLOOD COUNT (AUTO) 8.1 K/uL (4.8-10.8)
[2022-07-24 12:34] LABS: ALBUMIN 2.4 g/dL (3.5-5.0); CREATININE 0.9 mg/dL (0.5-1.5); TOTAL PROTEIN, SERUM 5.8 g/dL (6.0-8.3)
[2022-07-24] MEDS ORDERED: ALBUTEROL 0.083% 2.5 MG/3 ML INH IH ONE (13:00)
[2022-07-24] MEDS ORDERED: IPRATROPIUM 0.5 MG/2.5 ML INH IH ONE (13:00)
[2022-07-24 13:16] LABS: B-TYPE NATRIURETIC PEPTIDE 1900 pg/mL (0-100)
[2022-07-24] MEDS ORDERED: BUDESONIDE 0.5 MG/2 ML INH IH ONE (13:30)
[2022-07-24] MEDS ORDERED: HYDRALAZINE 20MG/ML VIAL IV PRN (14:00)
[2022-07-24] MEDS ORDERED: LABETALOL 20MG SYG IV PRN (14:00)
[2022-07-24] MEDS ORDERED: LACTULOSE 20 GM/30 ML UDCUP PO PRN (14:00)
[2022-07-24] MEDS ORDERED: FUROSEMIDE 40MG VIAL IV ONE (14:00)
[2022-07-24] MEDS ORDERED: BENZONATATE 100 MG CAPSULE PO PRN (14:00)
[2022-07-24] MEDS ORDERED: ONDANSETRON 4MG INJ IVP PRN (14:00)
[2022-07-24] MEDS ORDERED: LORATADINE 10 MG TABLET PO PRN (14:00)
[2022-07-24] MEDS: FUROSEMIDE 40MG VIAL IV SCH ×2 (14:00→19:41)
[2022-07-24] MEDS: GABAPENTIN 100 MG CAPSULE PO SCH ×2 (14:52→19:40)
[2022-07-24 15:51] LABS: APPEARANCE,URINE CLEAR (CLEAR); BILIRUBIN,URINE NEGATIVE (NEGATIVE); COLOR,URINE COLORLESS (YELLOW); GLUCOSE, URINE (UA) NEGATIVE (NEGATIVE); KETONES,URINE NEGATIVE (NEGATIVE); LEUKOCYTE ESTERASE ,URINE 75 Leu/uL (NEGATIVE); NITRATE,URINE NEGATIVE (NEGATIVE); OCCULT BLOOD,URINE NEGATIVE (NEGATIVE); PH,URINE 6.5 (5.0-8.0); PROTEIN,URINE NEGATIVE (NEGATIVE); UROBILINOGEN,URINE 0.2 mg/dL (0.2-1.0)
[2022-07-24 16:04] LABS: BACTERIA,URINE RARE /HPF (None Seen); RBC,URINE 0-1 /HPF (0-1); SQUAMOUS EPITHELIAL CELL,UR RARE /HPF (0-2)
[2022-07-24] MEDS: DOXYCYCLINE 100MG+NS 250ML IV SCH (16:05)
[2022-07-24] MEDS: INSULIN HUMULIN R 100 UNIT/ML 3ML SQ SCH ×2 (16:30→20:42)
[2022-07-24 17:00] VITALS: BP 112/70
[2022-07-24] MEDS: IVABRADINE HCL 5 MG TABLET PO SCH (17:11)
[2022-07-24] MEDS: IPRATROPIUM 0.5 MG/2.5 ML INH IH SCH ×2 (19:06→23:15)
[2022-07-24] MEDS: PRAVASTATIN SODIUM 10 MG PO SCH (19:40)
[2022-07-24] MEDS: FAMOTIDINE 20MG TAB PO SCH (19:40)
[2022-07-24] MEDS: ACETAMINOPHEN 325 MG TAB PO PRN (19:44)
[2022-07-24 20:53] VITALS: BP 121/55
[2022-07-24] MEDS ORDERED: BUDESONIDE 0.5 MG/2 ML INH IH SCH (21:00)
[2022-07-24] MEDS: ENOXAPARIN SODIUM 1 MG/KG SQ SCH (21:00)
[2022-07-24] MEDS ORDERED: PHARMACY COMMUNICATION MISC STA (22:43)
[2022-07-25] VITALS (7 sets, daily range): BP systolic 88–111; BP diastolic 53–68
[2022-07-25] MEDS: DOXYCYCLINE 100MG+NS 250ML IV SCH (02:06)
[2022-07-25 04:16] LABS: BASOPHILS % (AUTO) 0.8 % (0.0-5.0); EOSINOPHILS % (AUTO) 1.6 % (0.0-8.0); HEMATOCRIT 38.1 % (36-48); LYMPHOCYTES % (AUTO) 10.3 % (21.0-51.0); MEAN CORPUSCULAR HEMOGLOBIN 27.4 pg (27.0-33.0); MEAN CORPUSCULAR HGB CONC 31.2 g/dL (32.0-36.0); MEAN CORPUSCULAR VOLUME 87.6 fL (79-99); MONOCYTES % (AUTO) 8.2 % (3.0-13.0); NEUTROPHILS % (AUTO) 78.6 % (40.0-77.0); PLATELET COUNT (AUTO) 293 K/uL (130-400); RED BLOOD CELL COUNT(AUTO) 4.35 MIL/uL (4.00-5.50); RED CELL DISTRIBUTION WIDTH 16.3 % (11.0-15.5); WHITE BLOOD COUNT (AUTO) 6.3 K/uL (4.8-10.8)
[2022-07-25 04:32] LABS: CREATININE 0.9 mg/dL (0.5-1.5); MAGNESIUM 1.4 mg/dL (1.80-2.40); PHOSPHORUS 3.8 mg/dL (2.5-4.9); POTASSIUM 3.3 mmol/L (3.5-5.1)
[2022-07-25] MEDS: FUROSEMIDE 40MG VIAL IV SCH ×3 (05:25→20:44)
[2022-07-25] MEDS: INSULIN HUMULIN R 100 UNIT/ML 3ML SQ SCH ×4 (05:51→20:31)
[2022-07-25] MEDS: IPRATROPIUM 0.5 MG/2.5 ML INH IH SCH ×4 (06:27→23:27)
[2022-07-25] MEDS: ENOXAPARIN SODIUM 1 MG/KG SQ SCH (09:00)
[2022-07-25] MEDS ORDERED: LEVOFLOXACIN 500 MG/D5W 100 ML IV SCH (09:00)
[2022-07-25] MEDS: FAMOTIDINE 20MG TAB PO SCH ×2 (09:03→20:28)
[2022-07-25] MEDS: GABAPENTIN 100 MG CAPSULE PO SCH ×3 (09:03→20:30)
[2022-07-25] MEDS: IVABRADINE HCL 5 MG TABLET PO SCH ×2 (09:03→17:18)
[2022-07-25] MEDS: ACETAMINOPHEN 325 MG TAB PO PRN (09:09)
[2022-07-25] MEDS: APIXABAN 5 MG TABLET PO SCH (20:28)
[2022-07-25] MEDS: PRAVASTATIN SODIUM 10 MG PO SCH (21:45)
[2022-07-25] MEDS: LIDOCAINE 5% TOPICAL PATCH TP SCH (21:47)
[2022-07-25] MEDS ORDERED: LIDOCAINE HCL-MPF 1% 2ML VIAL IV PRN (22:00)
[2022-07-25] MEDS ORDERED: POTASSIUM CHLORIDE 20MEQ/100ML 100 ML IV PRN (22:00)
[2022-07-25] MEDS ORDERED: POTASSIUM CHLORIDE 10% ELIXIR 20 MEQ/15 ML UDCUP PO PRN (22:00)
[2022-07-25] MEDS: MAGNESIUM 2GM PREMIX 50ML 50 ML IV PRN (22:12)
[2022-07-26] VITALS: BP 101/54
[2022-07-26] MEDS: KCL 20 MEQ ERTAB PO PRN ×3 (00:48→13:42)
[2022-07-26 04:00] VITALS: BP 99/61
[2022-07-26 04:45] LABS: CREATININE 0.9 mg/dL (0.5-1.5); MAGNESIUM 1.6 mg/dL (1.80-2.40); POTASSIUM 3.1 mmol/L (3.5-5.1)
[2022-07-26] MEDS: MAGNESIUM 2GM PREMIX 50ML 50 ML IV PRN (05:40)
[2022-07-26] MEDS: INSULIN HUMULIN R 100 UNIT/ML 3ML SQ SCH ×2 (06:03→11:30)
[2022-07-26] MEDS: IPRATROPIUM 0.5 MG/2.5 ML INH IH SCH ×2 (06:14→11:19)
[2022-07-26] MEDS: FUROSEMIDE 40MG VIAL IV SCH ×2 (06:39→13:41)
[2022-07-26 08:00] VITALS: BP 92/61
[2022-07-26] MEDS: IVABRADINE HCL 5 MG TABLET PO SCH (09:17)
[2022-07-26] MEDS: LIDOCAINE 5% TOPICAL PATCH TP SCH (09:17)
[2022-07-26] MEDS: GABAPENTIN 100 MG CAPSULE PO SCH ×2 (09:17→13:41)
[2022-07-26] MEDS: APIXABAN 5 MG TABLET PO SCH (09:18)
[2022-07-26] MEDS: FAMOTIDINE 20MG TAB PO SCH (09:18)
[2022-07-26 11:55] VITALS: BP 91/62
[2022-07-26] MEDS ORDERED: IPRATROPIUM/ALBUTEROL SULFATE 3 ML SOLUTION IH PRN (14:00)
[2022-07-26] MEDS ORDERED: POTA10CA45 PO (14:55)
[2022-07-26] MEDS ORDERED: FURO40TA5 PO (14:55)
[2022-07-27] MEDS ORDERED: FAMOTIDINE 20MG TAB PO SCH (09:00)
== END 2022-07-26 19:30 | disposition home or self-care (01) ==
LOC: EDH 11:49 → EDHIP 13:38 → 4CH 17:00
PROVIDERS: ADMIT Internal Medicine Pulmonary Disease; ATTEND Internal Medicine Pulmonary Disease
DX: J96.21 Acute and chronic respiratory failure with hypoxia (principal); Z20.822 Contact with and (suspected) exposure to COVID-19; I50.42 Chronic combined systolic (congestive) and diastolic (congestive) heart failure; J90 Pleural effusion, not elsewhere classified; I26.99 Other pulmonary embolism without acute cor pulmonale; J44.9 Chronic obstructive pulmonary disease, unspecified; F17.200 Nicotine dependence, unspecified, uncomplicated; J98.11 Atelectasis; N28.9 Disorder of kidney and ureter, unspecified; M19.90 Unspecified osteoarthritis, unspecified site; Z85.72 Personal history of non-Hodgkin lymphomas; Z86.711 Personal history of pulmonary embolism; Z91.199 Patient's noncompliance with other medical treatment and regimen due to unspecified reason; Z79.899 Other long term (current) drug therapy; Z98.890 Other specified postprocedural states; Z95.810 Presence of automatic (implantable) cardiac defibrillator
CPT/HCPCS: 94640 ×10; 96376 ×3; 96365; 96366 ×2; 96375 ×3; 99285; 84484; 80053; 83880 ×3; 85025 ×2; 85378; 87088; 87804 ×2; 82948 ×9; 81001; 36415 ×3; 87635; 71045 ×2; 93970; 93005; 94664; 94667; 94668 ×4; 83735 ×2; 84100; 80048 ×2; 84145; G0378 ×50; C9803; J3490 ×2; J1940 ×7; J3475 ×2; J3480